=== PATIENT | male | born 1955 | race Caucasian/White ===

== ENCOUNTER 2020-06-16 11:27 | Inpatient (IN) | payer MEDICARE, OTHER ==
[~2020-06-16] VITALS: Ht 182.9 cm; Wt 113.4 kg
[2020-06-16] MEDS ORDERED: SODIUM CHLORIDE 0.9% 500ML 500 ML IV ONE (12:15)
[2020-06-16] MEDS ORDERED: DILTIAZEM HCL 5 MG/ML 5 ML VIAL IV NR (12:15)
[2020-06-16 13:17] LABS: BASOPHILS % 0.8 % (0.0-1.0); EOSINOPHILS # (AUTO) 0.1 (0.0-0.4); EOSINOPHILS % 1.7 % (0.0-6.0); HEMATOCRIT 42.3 % (38.2-49.6); HEMOGLOBIN 14.1 g/dL (14.0-18.0); LYMPHOCYTES # (AUTO) 0.9 (1.0-3.2); LYMPHOCYTES % 24.4 % (18.0-39.1); MEAN CORPUSCULAR HEMOGLOBIN 33.9 pg (28-32); MEAN CORPUSCULAR HGB CONC 33.3 g/dL (31-35); MEAN CORPUSCULAR VOLUME 101.7 fL (81-99); MONOCYTES # (AUTO) 0.5 (0.2-0.8); MONOCYTES % 14.2 % (4.4-11.3); NEUTROPHILS # (AUTO) 2.1 (2.1-6.9); NEUTROPHILS % 58.6 % (38.7-80.0); PLATELET COUNT 106 x10e3/uL (140-360); RED BLOOD COUNT 4.16 x10e6/uL (4.3-5.7); RED CELL DISTRIBUTION WIDTH 14.4 % (11.7-14.4)
[2020-06-16 13:46] LABS: INR 1.31; PROTHROMBIN TIME 16.9 seconds (11.9-14.5)
[2020-06-16 13:47] LABS: PARTIAL THROMBOPLASTIN TIME 33.9 seconds (23.8-35.5)
[2020-06-16 13:50] LABS: ALANINE AMINOTRANSFERASE 26 IU/L (0-55); ALBUMIN 2.6 g/dL (3.5-5.0); ALBUMIN/GLOBULIN RATIO 0.5 (0.8-2.0); ALKALINE PHOSPHATASE 96 IU/L (40-150); ANION GAP 14.8 mmol/L (8-16); BLOOD UREA NITROGEN 6 mg/dL (7-26); BUN/CREATININE RATIO 9 (6-25); CALCIUM 9.2 mg/dL (8.4-10.2); CARBON DIOXIDE 27 mmol/L (22-29); CHLORIDE 100 mmol/L (98-107); CREATINE KINASE 43 IU/L (30-200); CREATININE, SERUM 0.69 mg/dL (0.72-1.25); EST GLOMERULAR FILTRATION RATE > 60 ML/MIN (60-); GLUCOSE 89 mg/dL (74-118); MAGNESIUM 1.6 MG/DL (1.3-2.1); POTASSIUM 3.8 mmol/L (3.5-5.1); SODIUM 138 mmol/L (136-145)
[2020-06-16] MEDS ORDERED: SODIUM CHLORIDE 0.9% 50ML 0 ML ONE (14:29)
[2020-06-16] MEDS ORDERED: IOPAMIDOL 370 MG/ML 200 ML INFUS..BTL INJ ONE (14:29)
[2020-06-16] MEDS ORDERED: DILTIAZEM HCL 30 MG TAB ONE (14:57)
[2020-06-16] MEDS ORDERED: FUROSEMIDE INJ 10 MG/ML 4 ML VIAL IV ONE (15:30)
[2020-06-16] MEDS ORDERED: ONDANSETRON HCL INJ 2MG/ML 2ML 2 MG/ML VIAL IV PRN (15:45)
[2020-06-16] MEDS ORDERED: ENOXAPARIN SODIUM INJ 100 MG/ML SYR SC NR (15:45)
[2020-06-16] MEDS ORDERED: LORAZEPAM INJ 2 MG/ML VIAL IV PRN (15:45)
[2020-06-16] MEDS: CEFTRIAXONE SOD 1 GM/NS 50 ML 50 ML IV SCH (16:07)
[2020-06-16] MEDS: AZITHROMYCIN 500MG/NS 250 ML 250 ML IV SCH (16:08)
[2020-06-16] MEDS: DILTIAZEM HCL ER 90MG CAPSULE PO SCH (17:39)
[2020-06-16] MEDS ORDERED: ACETAMINOPHEN 325 MG TAB PO PRN (18:45)
[2020-06-16] MEDS ORDERED: METOPROLOL TARTRATE INJ 1 MG/ML VIAL IV PRN (18:45)
[2020-06-16] MEDS ORDERED: POLYETHYLENE GLYCOL 3350 17 GM PACK PO PRN (18:45)
[2020-06-16 20:33] VITALS: BP 145/90
[2020-06-16] MEDS ORDERED: TEMAZEPAM 7.5 MG CAP PO PRN (21:00)
[2020-06-16 22:43] LABS: CREATINE KINASE MB 2.8 ng/mL (0-5.0)
[2020-06-17] VITALS (10 sets, daily range): BP systolic 118–146; BP diastolic 66–88
[2020-06-17 05:58] LABS: ALANINE AMINOTRANSFERASE 22 IU/L (0-55); ALBUMIN 2.3 g/dL (3.5-5.0); ALBUMIN/GLOBULIN RATIO 0.5 (0.8-2.0); ALKALINE PHOSPHATASE 79 IU/L (40-150); ANION GAP 10.8 mmol/L (8-16); BLOOD UREA NITROGEN 8 mg/dL (7-26); BUN/CREATININE RATIO 12 (6-25); CALCIUM 8.8 mg/dL (8.4-10.2); CARBON DIOXIDE 30 mmol/L (22-29); CHLORIDE 101 mmol/L (98-107); CHOL/HDL RATIO 4.7 (3.9-4.7); CHOLESTEROL 137 MD/DL (0-199); CREATININE, SERUM 0.66 mg/dL (0.72-1.25); EST GLOMERULAR FILTRATION RATE > 60 ML/MIN (60-); GLUCOSE 92 mg/dL (74-118); HDL CHOLESTEROL 29 MG/DL (40-60); LDL CHOLESTEROL 93 MG/DL (60-130); POTASSIUM 3.8 mmol/L (3.5-5.1); SODIUM 138 mmol/L (136-145); TRIGLYCERIDES 77 MG/DL (0-149)
[2020-06-17 06:17] LABS: MAGNESIUM 1.5 MG/DL (1.3-2.1)
[2020-06-17 06:37] LABS: CREATINE KINASE MB 2.4 ng/mL (0-5.0)
[2020-06-17 06:45] LABS: CLARITY,URINE CLEAR (CLEAR)
[2020-06-17 06:46] LABS: BILIRUBIN,URINE MODERATE (NEGATIVE); KETONES,URINE TRACE (NEGATIVE); LEUKOCYTE ESTERASE ,URINE NEGATIVE (NEGATIVE); NITRITE,URINE POSITIVE (NEGATIVE); PROTEIN,URINE DIPSTICK NEGATIVE (NEGATIVE)
[2020-06-17 06:48] LABS: BASOPHILS % 0.5 % (0.0-1.0); EOSINOPHILS # (AUTO) 0.1 (0.0-0.4); EOSINOPHILS % 2.9 % (0.0-6.0); HEMATOCRIT 36.2 % (38.2-49.6); HEMOGLOBIN 12.1 g/dL (14.0-18.0); LYMPHOCYTES # (AUTO) 0.9 (1.0-3.2); LYMPHOCYTES % 24.3 % (18.0-39.1); MEAN CORPUSCULAR HEMOGLOBIN 33.8 pg (28-32); MEAN CORPUSCULAR HGB CONC 33.4 g/dL (31-35); MEAN CORPUSCULAR VOLUME 101.1 fL (81-99); MONOCYTES # (AUTO) 0.6 (0.2-0.8); NEUTROPHILS # (AUTO) 2.1 (2.1-6.9); PLATELET COUNT 85 x10e3/uL (140-360); RED BLOOD COUNT 3.58 x10e6/uL (4.3-5.7); RED CELL DISTRIBUTION WIDTH 14.4 % (11.7-14.4)
[2020-06-17 06:48] LABS: COLOR,URINE ORANGE (YELLOW)
[2020-06-17 07:17] LABS: BACTERIA,URINE MODERATE /HPF; EPITHELIAL CELLS,URINE FEW /LPF; RBC,URINE 0-5 /HPF (0-5); WBC,URINE (MAN) 0-5 /HPF (0-5)
[2020-06-17 07:19] LABS: MUCUS,URINE MODERATE (RARE)
[2020-06-17] MEDS ORDERED: FAMOTIDINE 20 MG/2 ML VIAL IV SCH (09:00)
[2020-06-17] MEDS: DILTIAZEM HCL ER 90MG CAPSULE PO SCH ×2 (09:19→16:45)
[2020-06-17] MEDS: DOCUSATE SODIUM 100 MG CAP PO SCH ×2 (09:21→16:45)
[2020-06-17] MEDS ORDERED: LORAZEPAM INJ 2 MG/ML VIAL IV PRN (15:30)
[2020-06-17] MEDS ORDERED: FUROSEMIDE INJ 10 MG/ML 4 ML VIAL IV SCH (15:45)
[2020-06-17] MEDS ORDERED: POTASSIUM CHLORIDE 20 MEQ TAB CR PO SCH (15:45)
[2020-06-17] MEDS ORDERED: SODIUM CHLORIDE 0.9% 100 ML ONE (16:29)
[2020-06-17] MEDS ORDERED: MAGNESIUM SULFATE 2GM/50ML 50 ML IV ONE (16:30)
[2020-06-17] MEDS: AZITHROMYCIN 500MG/NS 250 ML 250 ML IV SCH (16:44)
[2020-06-17] MEDS: CEFTRIAXONE SOD 1 GM/NS 50 ML 50 ML IV SCH (16:44)
[2020-06-17] MEDS: SPIRONOLACTONE 25 MG TAB PO SCH (20:00)
[2020-06-17] MEDS: LORAZEPAM INJ 2 MG/ML VIAL IV PRN (20:50)
[2020-06-18] VITALS (9 sets, daily range): BP systolic 114–135; BP diastolic 60–93
[2020-06-18] MEDS ORDERED: THIAMINE HCL INJ 100 MG/ML 2ML VIAL IV ONE (00:15)
[2020-06-18] MEDS ORDERED: MULTIVITAMINS- 12 INJECTION 10 ML, FOLIC ACID MDV 5 MG, THIAMINE HCL INJ 100 MG in SODI... IV ONE (00:15)
[2020-06-18] MEDS: CHLORDIAZEPOXIDE HCL 25 MG CAP PO SCH ×4 (03:57→17:57)
[2020-06-18 05:55] LABS: BASOPHILS % 0.5 % (0.0-1.0); EOSINOPHILS # (AUTO) 0.1 (0.0-0.4); EOSINOPHILS % 2.1 % (0.0-6.0); HEMATOCRIT 36.7 % (38.2-49.6); HEMOGLOBIN 12.3 g/dL (14.0-18.0); LYMPHOCYTES # (AUTO) 0.8 (1.0-3.2); LYMPHOCYTES % 21.1 % (18.0-39.1); MEAN CORPUSCULAR HEMOGLOBIN 34.2 pg (28-32); MEAN CORPUSCULAR HGB CONC 33.5 g/dL (31-35); MEAN CORPUSCULAR VOLUME 101.9 fL (81-99); MONOCYTES # (AUTO) 0.5 (0.2-0.8); MONOCYTES % 13.3 % (4.4-11.3); NEUTROPHILS # (AUTO) 2.4 (2.1-6.9); PLATELET COUNT 87 x10e3/uL (140-360); RED CELL DISTRIBUTION WIDTH 14.4 % (11.7-14.4)
[2020-06-18 06:53] LABS: % IRON SATURATION 61 % (15-50); ALANINE AMINOTRANSFERASE 25 IU/L (0-55); ALBUMIN 2.5 g/dL (3.5-5.0); ALBUMIN/GLOBULIN RATIO 0.5 (0.8-2.0); ALKALINE PHOSPHATASE 85 IU/L (40-150); ANION GAP 12.7 mmol/L (8-16); BLOOD UREA NITROGEN 7 mg/dL (7-26); BUN/CREATININE RATIO 10 (6-25); CALCIUM 9.1 mg/dL (8.4-10.2); CARBON DIOXIDE 30 mmol/L (22-29); CHLORIDE 101 mmol/L (98-107); CREATININE, SERUM 0.71 mg/dL (0.72-1.25); EST GLOMERULAR FILTRATION RATE > 60 ML/MIN (60-); GLUCOSE 110 mg/dL (74-118); IRON 97 ug/dL (65-175); MAGNESIUM 1.5 MG/DL (1.3-2.1); POTASSIUM 3.7 mmol/L (3.5-5.1); SODIUM 140 mmol/L (136-145); TOTAL IRON BINDING CAPACITY 160 ug/dL (261-478); TRANSFERRIN 114 mg/dL (174-364)
[2020-06-18 06:54] LABS: INR 1.3; PARTIAL THROMBOPLASTIN TIME 36.5 seconds (23.8-35.5); PROTHROMBIN TIME 16.8 seconds (11.9-14.5)
[2020-06-18 07:19] LABS: FERRITIN 1449.47 ng/mL (21.81-274.66)
[2020-06-18 08:22] LABS: PLATELET ESTIMATE MODERATELY DECREASED
[2020-06-18 08:24] LABS: PLATELET MORPHOLOGY COMMENT NORMAL
[2020-06-18] MEDS: SPIRONOLACTONE 25 MG TAB PO SCH ×2 (08:46→17:57)
[2020-06-18] MEDS: FUROSEMIDE INJ 10 MG/ML 4 ML VIAL IV SCH (08:46)
[2020-06-18] MEDS: PANTOPRAZOLE SOD 40 MG TABEC PO SCH (08:46)
[2020-06-18] MEDS: LORAZEPAM INJ 2 MG/ML VIAL IV PRN (08:48)
[2020-06-18] MEDS: DOCUSATE SODIUM 100 MG CAP PO SCH ×2 (08:48→17:57)
[2020-06-18] MEDS ORDERED: SPIRONOLACTONE 25 MG TAB PO SCH (09:00)
[2020-06-18] MEDS ORDERED: MULTIVITAMINS- 12 INJECTION 10 ML, FOLIC ACID MDV 5 MG, THIAMINE HCL INJ 100 MG in SODI... IV SCH (09:00)
[2020-06-18] MEDS: DILTIAZEM HCL ER 90MG CAPSULE PO SCH ×2 (09:45→18:02)
[2020-06-18] MEDS: METOPROLOL TARTRATE 50 MG TAB PO SCH ×3 (09:47→18:02)
[2020-06-18] MEDS ORDERED: ALBUMIN 25% 12.5GM 50ML 150 ML IV ONE (12:15)
[2020-06-18] MEDS ORDERED: ALBUMIN 25% 12.5GM 50ML 50 ML IV ONE (12:53)
[2020-06-18] MEDS: CEFTRIAXONE SOD 1 GM/NS 50 ML 50 ML IV SCH (17:57)
[2020-06-18] MEDS: AZITHROMYCIN 250 MG TAB PO SCH (17:57)
[2020-06-19] VITALS (9 sets, daily range): BP systolic 90–144; BP diastolic 51–97
[2020-06-19] MEDS: CHLORDIAZEPOXIDE HCL 25 MG CAP PO SCH ×5 (00:51→23:50)
[2020-06-19] MEDS ORDERED: THIAMINE HCL INJ 100 MG/ML 2ML VIAL IV ONE (01:45)
[2020-06-19] MEDS ORDERED: MULTIVITAMINS IV SCH ×2 (01:51→08:00)
[2020-06-19] MEDS ORDERED: [UNRECOGNIZED DRUG - OTHER] IV SCH ×2 (01:51→08:00)
[2020-06-19] MEDS ORDERED: THIAMINE HCL IV SCH ×2 (01:51→08:00)
[2020-06-19] MEDS ORDERED: FOLIC ACID IV SCH ×2 (01:51→08:00)
[2020-06-19 03:08] LABS: BODY FLUID APPEARANCE CLOUDY; BODY FLUID COLOR YELLOW; BODY FLUID TYPE PERITONEAL; LYMPHOCYTES,BODY FLUID 58 %; MONO/MACROPHG,BODY FLUID 3 %; NEUTROPHILS,BODY FLUID 39 %; RBC,BODY FLUID 102 cells/uL; WBC,BODY FLUID 123 cells/uL
[2020-06-19] MEDS ORDERED: FUROSEMIDE INJ 10 MG/ML 2 ML VIAL IV ONE (04:30)
[2020-06-19] MEDS: ALBUTEROL/IPRATROPIUM 3 ML NEB NEB PRN ×4 (04:30→19:40)
[2020-06-19] MEDS: METOPROLOL TARTRATE 50 MG TAB PO SCH ×4 (04:32→16:16)
[2020-06-19 06:01] LABS: ALANINE AMINOTRANSFERASE 22 IU/L (0-55); ALBUMIN 2.9 g/dL (3.5-5.0); ALBUMIN/GLOBULIN RATIO 0.7 (0.8-2.0); ALKALINE PHOSPHATASE 75 IU/L (40-150); ANION GAP 12.1 mmol/L (8-16); BLOOD UREA NITROGEN 8 mg/dL (7-26); BUN/CREATININE RATIO 9 (6-25); CALCIUM 9.3 mg/dL (8.4-10.2); CARBON DIOXIDE 29 mmol/L (22-29); CHLORIDE 101 mmol/L (98-107); CREATININE, SERUM 0.94 mg/dL (0.72-1.25); EST GLOMERULAR FILTRATION RATE > 60 ML/MIN (60-); GLUCOSE 114 mg/dL (74-118); MAGNESIUM 1.6 MG/DL (1.3-2.1); POTASSIUM 4.1 mmol/L (3.5-5.1); SODIUM 138 mmol/L (136-145)
[2020-06-19 06:32] LABS: BASOPHILS % 0.7 % (0.0-1.0); EOSINOPHILS # (AUTO) 0.1 (0.0-0.4); HEMATOCRIT 38.6 % (38.2-49.6); HEMOGLOBIN 12.2 g/dL (14.0-18.0); LYMPHOCYTES % 16.6 % (18.0-39.1); MEAN CORPUSCULAR HEMOGLOBIN 33.5 pg (28-32); MEAN CORPUSCULAR HGB CONC 31.6 g/dL (31-35); MONOCYTES # (AUTO) 0.9 (0.2-0.8); MONOCYTES % 14.4 % (4.4-11.3); NEUTROPHILS % 65.8 % (38.7-80.0); PLATELET COUNT 113 x10e3/uL (140-360); RED BLOOD COUNT 3.64 x10e6/uL (4.3-5.7); RED CELL DISTRIBUTION WIDTH 14.8 % (11.7-14.4)
[2020-06-19] MEDS: DILTIAZEM HCL ER 90MG CAPSULE PO SCH (07:51)
[2020-06-19] MEDS: DOCUSATE SODIUM 100 MG CAP PO SCH ×2 (08:58→16:19)
[2020-06-19] MEDS: PANTOPRAZOLE SOD 40 MG TABEC PO SCH (08:58)
[2020-06-19] MEDS: FUROSEMIDE INJ 10 MG/ML 4 ML VIAL IV SCH (09:00)
[2020-06-19] MEDS: THIAMINE HCL INJ 100 MG/ML 2ML VIAL IV SCH (09:00)
[2020-06-19] MEDS: SPIRONOLACTONE 25 MG TAB PO SCH ×2 (09:00→16:19)
[2020-06-19] MEDS: FOLIC ACID IV SCH (11:53)
[2020-06-19] MEDS: MULTIVITAMINS IV SCH (11:53)
[2020-06-19] MEDS: [UNRECOGNIZED DRUG - OTHER] IV SCH (11:53)
[2020-06-19] MEDS: THIAMINE HCL IV SCH (11:53)
[2020-06-19 12:30] LABS: ABG HCO3 36 mmol/L (22-26); ABG PCO2 68 mmHg (35-45); ABG PH 7.34 (7.35-7.45); ABG PO2 101 mmHg (80-105); ABG TCO2 38
[2020-06-19] MEDS: AZITHROMYCIN 250 MG TAB PO SCH (16:19)
[2020-06-19] MEDS: CEFTRIAXONE SOD 1 GM/NS 50 ML 50 ML IV SCH (16:19)
[2020-06-20] VITALS (8 sets, daily range): BP systolic 87–114; BP diastolic 46–66
[2020-06-20] MEDS: CHLORDIAZEPOXIDE HCL 25 MG CAP PO SCH ×3 (05:46→17:02)
[2020-06-20 06:37] LABS: BASOPHILS % 0.8 % (0.0-1.0); EOSINOPHILS # (AUTO) 0.1 (0.0-0.4); EOSINOPHILS % 2.8 % (0.0-6.0); HEMATOCRIT 41.4 % (38.2-49.6); HEMOGLOBIN 13.3 g/dL (14.0-18.0); LYMPHOCYTES # (AUTO) 0.8 (1.0-3.2); LYMPHOCYTES % 20.4 % (18.0-39.1); MEAN CORPUSCULAR HEMOGLOBIN 33.6 pg (28-32); MEAN CORPUSCULAR HGB CONC 32.1 g/dL (31-35); MEAN CORPUSCULAR VOLUME 104.5 fL (81-99); MONOCYTES # (AUTO) 0.5 (0.2-0.8); MONOCYTES % 13.4 % (4.4-11.3); NEUTROPHILS # (AUTO) 2.4 (2.1-6.9); NEUTROPHILS % 62.3 % (38.7-80.0); PLATELET COUNT 77 x10e3/uL (140-360); RED BLOOD COUNT 3.96 x10e6/uL (4.3-5.7); RED CELL DISTRIBUTION WIDTH 14.4 % (11.7-14.4)
[2020-06-20] MEDS: ALBUTEROL/IPRATROPIUM 3 ML NEB NEB PRN ×4 (07:00→19:20)
[2020-06-20 07:10] LABS: ANION GAP 11.6 mmol/L (8-16); BLOOD UREA NITROGEN 13 mg/dL (7-26); BUN/CREATININE RATIO 13 (6-25); CARBON DIOXIDE 29 mmol/L (22-29); CHLORIDE 101 mmol/L (98-107); EST GLOMERULAR FILTRATION RATE > 60 ML/MIN (60-); GLUCOSE 83 mg/dL (74-118); POTASSIUM 3.6 mmol/L (3.5-5.1); SODIUM 138 mmol/L (136-145)
[2020-06-20] MEDS: PANTOPRAZOLE SOD 40 MG TABEC PO SCH (07:30)
[2020-06-20] MEDS: THIAMINE HCL IV SCH (08:00)
[2020-06-20] MEDS: MULTIVITAMINS IV SCH (08:00)
[2020-06-20] MEDS: FOLIC ACID IV SCH (08:00)
[2020-06-20] MEDS: [UNRECOGNIZED DRUG - OTHER] IV SCH (08:00)
[2020-06-20 08:26] LABS: MAGNESIUM 1.5 MG/DL (1.3-2.1); PHOSPHORUS 3.4 MG/DL (2.3-4.7)
[2020-06-20] MEDS: FUROSEMIDE INJ 10 MG/ML 4 ML VIAL IV SCH (09:00)
[2020-06-20] MEDS: DOCUSATE SODIUM 100 MG CAP PO SCH ×2 (09:00→17:00)
[2020-06-20] MEDS: METOPROLOL TARTRATE 50 MG TAB PO SCH ×2 (09:00→17:00)
[2020-06-20] MEDS: THIAMINE HCL INJ 100 MG/ML 2ML VIAL IV SCH (09:00)
[2020-06-20] MEDS: SPIRONOLACTONE 25 MG TAB PO SCH ×2 (09:00→17:00)
[2020-06-20] MEDS ORDERED: FUROSEMIDE INJ 10 MG/ML 4 ML VIAL INJ NR (15:00)
[2020-06-20] MEDS: ALBUMIN 25% 12.5GM 0.25 GM/ML BTL IV SCH ×2 (15:00→21:00)
[2020-06-20] MEDS: AZITHROMYCIN 250 MG TAB PO SCH (16:00)
[2020-06-20] MEDS: CEFTRIAXONE SOD 1 GM/NS 50 ML 50 ML IV SCH (16:00)
[2020-06-21] VITALS (8 sets, daily range): BP systolic 92–122; BP diastolic 60–71
[2020-06-21] MEDS: CHLORDIAZEPOXIDE HCL 25 MG CAP PO SCH ×2 (05:38)
[2020-06-21] MEDS: LORAZEPAM INJ 2 MG/ML VIAL IV PRN (06:41)
[2020-06-21 07:16] LABS: BASOPHILS % 0.6 % (0.0-1.0); EOSINOPHILS # (AUTO) 0.1 (0.0-0.4); EOSINOPHILS % 4.1 % (0.0-6.0); HEMATOCRIT 35.7 % (38.2-49.6); HEMOGLOBIN 11.9 g/dL (14.0-18.0); LYMPHOCYTES # (AUTO) 0.8 (1.0-3.2); MEAN CORPUSCULAR HEMOGLOBIN 34.4 pg (28-32); MEAN CORPUSCULAR HGB CONC 33.3 g/dL (31-35); MEAN CORPUSCULAR VOLUME 103.2 fL (81-99); MONOCYTES # (AUTO) 0.4 (0.2-0.8); MONOCYTES % 12.2 % (4.4-11.3); NEUTROPHILS # (AUTO) 2.1 (2.1-6.9); NEUTROPHILS % 60.8 % (38.7-80.0); PLATELET COUNT 72 x10e3/uL (140-360); RED BLOOD COUNT 3.46 x10e6/uL (4.3-5.7); RED CELL DISTRIBUTION WIDTH 14.3 % (11.7-14.4)
[2020-06-21] MEDS: PANTOPRAZOLE SOD 40 MG TABEC PO SCH (07:30)
[2020-06-21 07:33] LABS: ANION GAP 7.3 mmol/L (8-16); BLOOD UREA NITROGEN 13 mg/dL (7-26); BUN/CREATININE RATIO 16 (6-25); CALCIUM 9.1 mg/dL (8.4-10.2); CARBON DIOXIDE 33 mmol/L (22-29); CHLORIDE 102 mmol/L (98-107); CREATININE, SERUM 0.83 mg/dL (0.72-1.25); EST GLOMERULAR FILTRATION RATE > 60 ML/MIN (60-); GLUCOSE 95 mg/dL (74-118); POTASSIUM 3.3 mmol/L (3.5-5.1); SODIUM 139 mmol/L (136-145)
[2020-06-21 07:43] LABS: B-TYPE NATRIURETIC PEPTIDE2 394.6 pg/mL (0-100)
[2020-06-21] MEDS: METOPROLOL TARTRATE 50 MG TAB PO SCH ×2 (08:38→17:43)
[2020-06-21] MEDS: LACTULOSE SYRUP 20 GM/30 ML UDC PO SCH ×2 (09:00→17:43)
[2020-06-21] MEDS: SPIRONOLACTONE 25 MG TAB PO SCH ×2 (09:00→17:43)
[2020-06-21] MEDS: DOCUSATE SODIUM 100 MG CAP PO SCH ×2 (09:00→17:43)
[2020-06-21] MEDS ORDERED: CHLORDIAZEPOXIDE HCL 25 MG CAP PO PRN (09:45)
[2020-06-21] MEDS: [UNRECOGNIZED DRUG - OTHER] IV SCH (10:34)
[2020-06-21] MEDS: MULTIVITAMINS IV SCH (10:34)
[2020-06-21] MEDS: FOLIC ACID IV SCH (10:34)
[2020-06-21] MEDS: THIAMINE HCL IV SCH (10:34)
[2020-06-21] MEDS: FUROSEMIDE INJ 10 MG/ML 4 ML VIAL IV SCH (10:34)
[2020-06-21] MEDS: THIAMINE HCL INJ 100 MG/ML 2ML VIAL IV SCH (10:34)
[2020-06-21] MEDS: ALBUTEROL/IPRATROPIUM 3 ML NEB NEB PRN (13:35)
[2020-06-21] MEDS ORDERED: MAGNESIUM SULFATE 2GM/50ML 50 ML IV ONE (14:30)
[2020-06-21] MEDS ORDERED: POTASSIUM CHLORIDE 20 MEQ TAB CR PO ONE (17:30)
[2020-06-21] MEDS: AZITHROMYCIN 250 MG TAB PO SCH (17:43)
[2020-06-21] MEDS: CEFTRIAXONE SOD 1 GM/NS 50 ML 50 ML IV SCH (23:15)
[2020-06-21] MEDS ORDERED: RIFAXIMIN 550 MG TABLET PO STA (23:41)
[2020-06-22] MEDS ORDERED: MAGNESIUM SULFATE 2GM/50ML 50 ML IV ONE
[2020-06-22 00:55] VITALS: BP 120/78
[2020-06-22] MEDS ORDERED: POTASSIUM CHLORIDE 20 MEQ TAB CR PO ONE (03:00)
[2020-06-22 04:00] VITALS: BP 99/78
[2020-06-22 05:06] LABS: BASOPHILS % 0.7 % (0.0-1.0); EOSINOPHILS # (AUTO) 0.2 (0.0-0.4); EOSINOPHILS % 4.1 % (0.0-6.0); HEMOGLOBIN 11.9 g/dL (14.0-18.0); MEAN CORPUSCULAR HEMOGLOBIN 34.9 pg (28-32); MEAN CORPUSCULAR HGB CONC 33.1 g/dL (31-35); MEAN CORPUSCULAR VOLUME 105.6 fL (81-99); MONOCYTES # (AUTO) 0.6 (0.2-0.8); MONOCYTES % 13.3 % (4.4-11.3); NEUTROPHILS # (AUTO) 2.6 (2.1-6.9); NEUTROPHILS % 59.4 % (38.7-80.0); PLATELET COUNT 75 x10e3/uL (140-360); RED BLOOD COUNT 3.41 x10e6/uL (4.3-5.7); RED CELL DISTRIBUTION WIDTH 14.3 % (11.7-14.4)
[2020-06-22 05:27] LABS: ALANINE AMINOTRANSFERASE 20 IU/L (0-55); ALBUMIN 2.4 g/dL (3.5-5.0); ALBUMIN/GLOBULIN RATIO 0.7 (0.8-2.0); ALKALINE PHOSPHATASE 59 IU/L (40-150); ANION GAP 8.8 mmol/L (8-16); BLOOD UREA NITROGEN 13 mg/dL (7-26); BUN/CREATININE RATIO 17 (6-25); CARBON DIOXIDE 36 mmol/L (22-29); CHLORIDE 100 mmol/L (98-107); CREATININE, SERUM 0.76 mg/dL (0.72-1.25); EST GLOMERULAR FILTRATION RATE > 60 ML/MIN (60-); GLUCOSE 90 mg/dL (74-118); POTASSIUM 3.8 mmol/L (3.5-5.1); SODIUM 141 mmol/L (136-145)
[2020-06-22 05:34] LABS: B-TYPE NATRIURETIC PEPTIDE2 285.8 pg/mL (0-100)
[2020-06-22 06:12] LABS: MAGNESIUM 1.7 MG/DL (1.3-2.1); PHOSPHORUS 3.4 MG/DL (2.3-4.7)
[2020-06-22 08:25] VITALS: BP 111/64
[2020-06-22] MEDS: PANTOPRAZOLE SOD 40 MG TABEC PO SCH (08:30)
[2020-06-22] MEDS: RIFAXIMIN 550 MG TABLET PO SCH ×2 (08:35→16:57)
[2020-06-22] MEDS: DOCUSATE SODIUM 100 MG CAP PO SCH ×2 (08:35→16:56)
[2020-06-22] MEDS: METOPROLOL TARTRATE 50 MG TAB PO SCH ×2 (08:35→17:30)
[2020-06-22] MEDS: SPIRONOLACTONE 25 MG TAB PO SCH ×2 (08:36→17:00)
[2020-06-22] MEDS: LACTULOSE SYRUP 20 GM/30 ML UDC PO SCH ×2 (08:39→16:57)
[2020-06-22] MEDS: FUROSEMIDE INJ 10 MG/ML 4 ML VIAL IV SCH (08:41)
[2020-06-22] MEDS: THIAMINE HCL INJ 100 MG/ML 2ML VIAL IV SCH (08:45)
[2020-06-22] MEDS: THIAMINE HCL IV SCH (08:53)
[2020-06-22] MEDS: [UNRECOGNIZED DRUG - OTHER] IV SCH (08:53)
[2020-06-22] MEDS: MULTIVITAMINS IV SCH (08:53)
[2020-06-22] MEDS: FOLIC ACID IV SCH (08:53)
[2020-06-22] MEDS ORDERED: LACTULOSE20 GM/30 M PO (08:59)
[2020-06-22] MEDS ORDERED: METOPROLOL TART50 MG PO (08:59)
[2020-06-22] MEDS ORDERED: FUROSEMIDE40 MG PO (08:59)
[2020-06-22] MEDS ORDERED: PROTONIX40 MG/ML PO (08:59)
[2020-06-22] MEDS ORDERED: XIFAXAN550 MG PO (08:59)
[2020-06-22] MEDS ORDERED: ALDACTONE25 MG PO (08:59)
[2020-06-22 10:49] LABS: INR 1.4; PARTIAL THROMBOPLASTIN TIME 34.4 seconds (23.8-35.5); PROTHROMBIN TIME 17.9 seconds (11.9-14.5)
[2020-06-22 11:38] VITALS: BP 104/60
[2020-06-22 15:58] VITALS: BP 96/57
[2020-06-22] MEDS: AZITHROMYCIN 250 MG TAB PO SCH (16:56)
[2020-06-22 17:27] VITALS: BP 108/61
[2020-06-22] MEDS ORDERED: CEFTRIAXONE SOD 1 GM/NS 50 ML 50 ML IV SCH (23:00)
== END 2020-06-22 18:35 | disposition home or self-care (01) | DRG 432 ==
LOC: ER 11:38 → ERHOLD 15:34 → MED/SURG2 20:30
PROVIDERS: ADMIT Internal Medicine; ATTEND Internal Medicine
PROC: 0W9G3ZZ Drainage of Peritoneal Cavity, Percutaneous Approach (ICD-10-PCS; 2020-06-18)
PROC: 0W9B30Z Drainage of Left Pleural Cavity with Drainage Device, Percutaneous Approach (ICD-10-PCS; principal; 2020-06-19)
PROC: 02HV33Z Insertion of Infusion Device into Superior Vena Cava, Percutaneous Approach (ICD-10-PCS; 2020-06-21)
PROC: B548ZZA Ultrasonography of Superior Vena Cava, Guidance (ICD-10-PCS; 2020-06-21)
PROC: 0W9B3ZZ Drainage of Left Pleural Cavity, Percutaneous Approach (ICD-10-PCS; 2020-06-22)
DX: K70.31 Alcoholic cirrhosis of liver with ascites (principal); I50.33 Acute on chronic diastolic (congestive) heart failure; J96.02 Acute respiratory failure with hypercapnia; G92 Toxic encephalopathy; F10.230 Alcohol dependence with withdrawal, uncomplicated; D61.818 Other pancytopenia; F19.19 Other psychoactive substance abuse with unspecified psychoactive substance-induced disorder; E83.42 Hypomagnesemia; I48.91 Unspecified atrial fibrillation; Z96.642 Presence of left artificial hip joint; F17.210 Nicotine dependence, cigarettes, uncomplicated; E66.9 Obesity, unspecified; Z68.33 Body mass index [BMI] 33.0-33.9, adult; I87.8 Other specified disorders of veins; D69.6 Thrombocytopenia, unspecified; Z82.3 Family history of stroke; Z80.1 Family history of malignant neoplasm of trachea, bronchus and lung; Z84.89 Family history of other specified conditions; D64.9 Anemia, unspecified; E88.09 Other disorders of plasma-protein metabolism, not elsewhere classified; R79.89 Other specified abnormal findings of blood chemistry; J44.9 Chronic obstructive pulmonary disease, unspecified; E87.6 Hypokalemia; K72.90 Hepatic failure, unspecified without coma; G47.30 Sleep apnea, unspecified; R53.81 Other malaise
CPT/HCPCS: 32555; 36415; 36569; 36600; 49083; 71045; 71250; 74470; 76604; 76705; 80048; 80053; 80061; 81001; 81161; 81220; 82105; 82140; 82550; 82553; 82607; 82728; 82746; 82805; 83036; 83540; 83735; 83880; 84100; 84443; 84466; 84484; 85025; 85045; 85610; 85730; 87040; 87070; 87086; 87205; 88112; 88305; 89051; 93005; 93306; 93970; 94640; 97139; 99284; C1729; J0456; J0696; J1650; J1940; J2060; J3411; J3475; J7030; J7040; J7050; J7060; Q9967; U0002

== ENCOUNTER 2020-07-02 11:46 | Emergency (ER) | payer MEDICARE, OTHER ==
[~2020-07-02] VITALS: Ht 182.9 cm; Wt 108.9 kg
[~2020-07-02 11:46] MED LIST: ALDACTONE25 MG PO; FUROSEMIDE40 MG PO; LACTULOSE20 GM/30 M PO; METOPROLOL TART50 MG PO; PROTONIX40 MG/ML PO; XIFAXAN550 MG PO
[2020-07-02 13:03] LABS: EOSINOPHILS # (AUTO) 0.2 (0.0-0.4); EOSINOPHILS % 5.1 % (0.0-6.0); HEMATOCRIT 38.6 % (38.2-49.6); HEMOGLOBIN 12.6 g/dL (14.0-18.0); LYMPHOCYTES # (AUTO) 1.2 (1.0-3.2); LYMPHOCYTES % 29.4 % (18.0-39.1); MEAN CORPUSCULAR HEMOGLOBIN 33.6 pg (28-32); MEAN CORPUSCULAR HGB CONC 32.6 g/dL (31-35); MEAN CORPUSCULAR VOLUME 102.9 fL (81-99); MONOCYTES # (AUTO) 0.5 (0.2-0.8); MONOCYTES % 11.7 % (4.4-11.3); NEUTROPHILS # (AUTO) 2.2 (2.1-6.9); NEUTROPHILS % 52.3 % (38.7-80.0); PLATELET COUNT 113 x10e3/uL (140-360); RED BLOOD COUNT 3.75 x10e6/uL (4.3-5.7); RED CELL DISTRIBUTION WIDTH 13.9 % (11.7-14.4)
[2020-07-02 13:07] LABS: INR 1.29; PARTIAL THROMBOPLASTIN TIME 33.5 seconds (23.8-35.5); PROTHROMBIN TIME 16.7 seconds (11.9-14.5)
[2020-07-02 13:14] LABS: ALANINE AMINOTRANSFERASE 34 IU/L (0-55); ALBUMIN 2.6 g/dL (3.5-5.0); ALBUMIN/GLOBULIN RATIO 0.5 (0.8-2.0); ALKALINE PHOSPHATASE 93 IU/L (40-150); ANION GAP 13.2 mmol/L (8-16); BLOOD UREA NITROGEN 13 mg/dL (7-26); BUN/CREATININE RATIO 14 (6-25); CALCIUM 9.5 mg/dL (8.4-10.2); CARBON DIOXIDE 33 mmol/L (22-29); CHLORIDE 97 mmol/L (98-107); CREATININE, SERUM 0.91 mg/dL (0.72-1.25); EST GLOMERULAR FILTRATION RATE > 60 ML/MIN (60-); GLUCOSE 90 mg/dL (74-118); POTASSIUM 4.2 mmol/L (3.5-5.1); SODIUM 139 mmol/L (136-145)
[2020-07-02] MEDS ORDERED: FUROSEMIDE INJ 10 MG/ML 2 ML VIAL IV ONE (13:15)
== END 2020-07-02 13:45 | disposition home or self-care (01) ==
LOC: ER 12:00
DX: R18.8 Other ascites (principal); K74.60 Unspecified cirrhosis of liver; I10 Essential (primary) hypertension; Z96.642 Presence of left artificial hip joint
CPT/HCPCS: 36415; 80053; 82140; 85025; 85610; 85730; 99284; J1940

== ENCOUNTER → 2020-08-10 | Day surgery (SDC) | payer MEDICARE, OTHER ==
[2020-08-05 10:07] LABS: BASOPHILS % 0.8 % (0.0-1.0); EOSINOPHILS # (AUTO) 0.1 (0.0-0.4); EOSINOPHILS % 3.8 % (0.0-6.0); HEMATOCRIT 40.5 % (38.2-49.6); HEMOGLOBIN 13.5 g/dL (14.0-18.0); LYMPHOCYTES # (AUTO) 1.2 (1.0-3.2); LYMPHOCYTES % 32.1 % (18.0-39.1); MEAN CORPUSCULAR HEMOGLOBIN 33.8 pg (28-32); MEAN CORPUSCULAR HGB CONC 33.3 g/dL (31-35); MEAN CORPUSCULAR VOLUME 101.3 fL (81-99); MONOCYTES # (AUTO) 0.4 (0.2-0.8); MONOCYTES % 10.2 % (4.4-11.3); NEUTROPHILS # (AUTO) 1.9 (2.1-6.9); NEUTROPHILS % 52.6 % (38.7-80.0); PLATELET COUNT 108 x10e3/uL (140-360); RED CELL DISTRIBUTION WIDTH 14.2 % (11.7-14.4)
[2020-08-05 10:33] LABS: INR 1.17; PROTHROMBIN TIME 15.5 seconds (11.9-14.5)
[2020-08-05 10:52] LABS: ALANINE AMINOTRANSFERASE 29 IU/L (0-55); ALBUMIN 2.6 g/dL (3.5-5.0); ALBUMIN/GLOBULIN RATIO 0.5 (0.8-2.0); ALKALINE PHOSPHATASE 101 IU/L (40-150); ANION GAP 11.5 mmol/L (8-16); BLOOD UREA NITROGEN 12 mg/dL (7-26); BUN/CREATININE RATIO 14 (6-25); CALCIUM 9.3 mg/dL (8.4-10.2); CARBON DIOXIDE 32 mmol/L (22-29); CHLORIDE 98 mmol/L (98-107); CREATININE, SERUM 0.86 mg/dL (0.72-1.25); EST GLOMERULAR FILTRATION RATE > 60 ML/MIN (60-); GLUCOSE 92 mg/dL (74-118); POTASSIUM 5.5 mmol/L (3.5-5.1); SODIUM 136 mmol/L (136-145)
[~2020-08-10] MED LIST changes: +FENTANYL CITRATE/PF 100MCG/2 ML INJ ONE; +GLUCAGON FOR INJ 1 MG VIAL ONE; +HYOSCYAMINE 0.125 MG TAB ONE; +MIDAZOLAM HCL 2 MG/2 ML VIAL ONE; +PROPOFOL IV EMULSION 10 MG/ML 20 ML VIAL ONE; +PROPRANOLOL HCL10 MG PO
[2020-08-10 17:50] VITALS: BP 111/70
== END | disposition home or self-care (01) ==
LOC: OR 11:30
PROVIDERS: ATTEND Internal Medicine Gastroenterology
DX: Z12.11 Encounter for screening for malignant neoplasm of colon (principal); K63.5 Polyp of colon; K31.7 Polyp of stomach and duodenum; K29.70 Gastritis, unspecified, without bleeding; K29.80 Duodenitis without bleeding; K74.60 Unspecified cirrhosis of liver; I85.10 Secondary esophageal varices without bleeding; K76.6 Portal hypertension; K31.89 Other diseases of stomach and duodenum; R18.8 Other ascites; K64.8 Other hemorrhoids; J90 Pleural effusion, not elsewhere classified; K21.9 Gastro-esophageal reflux disease without esophagitis; I11.0 Hypertensive heart disease with heart failure; I50.9 Heart failure, unspecified; I48.20 Chronic atrial fibrillation, unspecified; F17.210 Nicotine dependence, cigarettes, uncomplicated; Z01.810 Encounter for preprocedural cardiovascular examination; Z01.812 Encounter for preprocedural laboratory examination; Z20.828 Contact with and (suspected) exposure to other viral communicable diseases
CPT/HCPCS: 36415 ×2; 43239; 43244; 45384; 45385; 80053; 84132; 85025; 85610; 85730; 88305; 88312; 93005; J1610; J2250; J2704; J3010; U0002

== ENCOUNTER → 2020-08-23 | Outpatient (CLI) | payer MEDICARE, OTHER ==
[~2020-08-23] MED LIST changes: -FENTANYL CITRATE/PF 100MCG/2 ML INJ ONE; -GLUCAGON FOR INJ 1 MG VIAL ONE; -HYOSCYAMINE 0.125 MG TAB ONE; -MIDAZOLAM HCL 2 MG/2 ML VIAL ONE; -PROPOFOL IV EMULSION 10 MG/ML 20 ML VIAL ONE
== END ==
LOC: CT 14:49
PROVIDERS: ATTEND Surgery Surgical Critical Care
DX: J90 Pleural effusion, not elsewhere classified (principal)
CPT/HCPCS: 71250

== ENCOUNTER → 2021-06-13 | Day surgery (SDC) | payer MEDICARE, OTHER ==
[~2021-06-13] MED LIST changes: +DICYCLOMINE HCL10 MG PO; +FAMOTIDINE20 MG PO; +PANTOPRAZOLE SO40 MG PO
[2021-06-13 12:50] LABS: INR 1.07; PROTHROMBIN TIME 14.3 seconds (11.9-14.5)
[2021-06-13 12:51] LABS: PARTIAL THROMBOPLASTIN TIME 29.4 seconds (23.8-35.5)
[2021-06-13 15:25] VITALS: BP 143/80
== END | disposition home or self-care (01) ==
LOC: OR 11:23
PROVIDERS: ATTEND Internal Medicine Gastroenterology
DX: K70.30 Alcoholic cirrhosis of liver without ascites (principal); I85.10 Secondary esophageal varices without bleeding; K29.60 Other gastritis without bleeding; K26.9 Duodenal ulcer, unspecified as acute or chronic, without hemorrhage or perforation; K31.89 Other diseases of stomach and duodenum; K44.9 Diaphragmatic hernia without obstruction or gangrene; K76.6 Portal hypertension; Z86.010 Personal history of colon polyps; I10 Essential (primary) hypertension; F17.210 Nicotine dependence, cigarettes, uncomplicated; Z01.812 Encounter for preprocedural laboratory examination; Z20.822 Contact with and (suspected) exposure to COVID-19; Z68.30 Body mass index [BMI] 30.0-30.9, adult
CPT/HCPCS: 36415; 43239; 43244; 85610; 85730; 88305; 93005; U0002; 43255

== ENCOUNTER → 2021-08-15 | Day surgery (SDC) | payer MEDICARE, OTHER ==
[2021-08-11 09:50] LABS: BASOPHILS % 0.5 % (0.0-1.0); EOSINOPHILS # (AUTO) 0.2 (0.0-0.4); EOSINOPHILS % 5.5 % (0.0-6.0); HEMATOCRIT 41.7 % (38.2-49.6); HEMOGLOBIN 13.6 g/dL (14.0-18.0); LYMPHOCYTES # (AUTO) 0.8 (1.0-3.2); LYMPHOCYTES % 21.1 % (18.0-39.1); MEAN CORPUSCULAR HEMOGLOBIN 31.1 pg (28-32); MEAN CORPUSCULAR HGB CONC 32.6 g/dL (31-35); MEAN CORPUSCULAR VOLUME 95.4 fL (81-99); MONOCYTES # (AUTO) 0.4 (0.2-0.8); MONOCYTES % 12.1 % (4.4-11.3); NEUTROPHILS # (AUTO) 2.2 (2.1-6.9); NEUTROPHILS % 60.8 % (38.7-80.0); PLATELET COUNT 96 x10e3/uL (140-360); RED BLOOD COUNT 4.37 x10e6/uL (4.3-5.7); RED CELL DISTRIBUTION WIDTH 13.1 % (11.7-14.4)
[2021-08-11 10:24] LABS: INR 1.03; PROTHROMBIN TIME 14.3 seconds (11.9-14.5)
[2021-08-11 10:25] LABS: PARTIAL THROMBOPLASTIN TIME 30.1 seconds (23.8-35.5)
[2021-08-11 10:26] LABS: ALBUMIN 3.5 g/dL (3.5-5.0); ALBUMIN/GLOBULIN RATIO 0.9 (0.8-2.0); ANION GAP 15.1 mmol/L (8-16); CALCIUM 9.3 mg/dL (8.4-10.2); CREATININE, SERUM 1.1 mg/dL (0.72-1.25); POTASSIUM 4.1 mmol/L (3.5-5.1)
[~2021-08-15] MED LIST changes: +FENTANYL CITRATE/PF 100MCG/2 ML INJ ONE; +GLUCAGON FOR INJ 1 MG VIAL ONE; +LIDOCAINE HCL 2% LOCAL INJ 5 ML SDV VIAL INJ ONE; +MIDAZOLAM HCL 2 MG/2 ML VIAL ONE; +PROPOFOL IV EMULSION 10 MG/ML 20 ML VIAL ONE
[2021-08-15 08:45] VITALS: BP 132/89
== END | disposition home or self-care (01) ==
LOC: OR 07:09
PROVIDERS: ATTEND Internal Medicine Gastroenterology
DX: K29.70 Gastritis, unspecified, without bleeding (principal); K20.90 Esophagitis, unspecified without bleeding; K31.89 Other diseases of stomach and duodenum; K76.6 Portal hypertension; K74.60 Unspecified cirrhosis of liver; I85.10 Secondary esophageal varices without bleeding; K21.9 Gastro-esophageal reflux disease without esophagitis; K44.9 Diaphragmatic hernia without obstruction or gangrene; I25.10 Atherosclerotic heart disease of native coronary artery without angina pectoris; I48.91 Unspecified atrial fibrillation; I11.0 Hypertensive heart disease with heart failure; I50.9 Heart failure, unspecified; M54.2 Cervicalgia; M54.9 Dorsalgia, unspecified; M19.90 Unspecified osteoarthritis, unspecified site; H91.90 Unspecified hearing loss, unspecified ear; F17.210 Nicotine dependence, cigarettes, uncomplicated; Z01.812 Encounter for preprocedural laboratory examination; Z20.822 Contact with and (suspected) exposure to COVID-19; Z79.899 Other long term (current) drug therapy
CPT/HCPCS: 36415; 43239; 43244; 43251; 80053; 85025; 85610; 85730; 88305; J1610; J2001; J2250; J2704; J3010; U0002